=== PATIENT | male | born 1970 | race Caucasian/White ===

== ENCOUNTER 2024-03-11 21:21 | Emergency (ER) | payer MEDICAID, SELFPAY ==
[2024-03-11 21:23] VITALS: BP 119/73; PULSE 78; RESP 16; TEMP 35.9; O2SAT 97; BMI 31.1
--- NOTE | 2024-03-11 21:45 | ED.RN ---
Patient admits to SI after being taken back to ED room, nursing staff aware.
--- NOTE | 2024-03-11 21:47 | EKG12_ITS ---
Test Reason : Blood Pressure : / mmHG Vent. Rate : 061 BPM Atrial Rate : 061 BPM P-R Int : 132 ms QRS Dur : 080 ms QT Int : 402 ms P-R-T Axes : 052 018 032 degrees QTc Int : 404 ms Normal sinus rhythm Normal ECG Confirmed by JUSTA ESPOSITO, ARCHANA ([id number]), loan expeditor SANTHOSH MONSON ([id number]) on 03/16/2024 7:27:21 AM Referred By: Confirmed By:AMOS MARR MD
--- NOTE | 2024-03-11 21:47 | CT_ITS ---
EXAM: CT ABDOMEN AND PELVIS WITH INTRAVENOUS CONTRAST CLINICAL INDICATION: abd pain diffuse TECHNIQUE: Helically acquired images were obtained of the abdomen and pelvis with intravenous contrast. This CT exam was performed using one or more of the following dose reduction techniques: automated exposure control, adjustment of the mA and/or kV according to patient size, and/or use of iterative reconstruction technique. CONTRAST: IV 100mL Isovue-370 COMPARISON: No relevant prior studies available. FINDINGS: LOWER THORAX: Unremarkable. Lung bases are clear. No cardiomegaly. No significant pericardial effusion. ABDOMEN: LIVER: Unremarkable. Homogeneous. No focal mass. GALLBLADDER AND BILE DUCTS: Unremarkable. No calcified gallstones. No gallbladder distention or wall edema. No intra- or extrahepatic biliary ductal dilation. PANCREAS: Unremarkable. No focal cystic or solid mass. SPLEEN: Unremarkable. Normal size without focal cystic or solid mass. ADRENALS: Unremarkable. No nodules. KIDNEYS AND URETERS: Unremarkable. Normal renal size and position. No hydronephrosis. STOMACH AND BOWEL: Unremarkable. No stomach or bowel distention. No focal inflammatory change. PELVIS: APPENDIX: No evidence of acute appendicitis. BLADDER: Unremarkable. REPRODUCTIVE: Unremarkable as visualized. No mass. ABDOMEN and PELVIS: INTRAPERITONEAL SPACE: Unremarkable. No ascites or other fluid collection. No free air. BONES/JOINTS: There is scoliotic deformity of the thoracolumbar spine. No suspicious lytic or blastic abnormality. SOFT TISSUES: Unremarkable. No discrete abdominal or pelvic wall hernia. VASCULATURE: Unremarkable. Abdominal aorta is non-dilated. LYMPH NODES: Unremarkable. No enlarged lymph nodes. CT/Abdomen/Pelvis W IV Cont ONLY IMPRESSION: No acute findings in the abdomen or pelvis. Electronically Signed: Elkin Caro MD at 23:30 EDT ,
--- NOTE | 2024-03-11 21:58 | EX.ED.DYSGE1 ---
HPI History of Present Illness Chief Complaint: Hyperglycemia Narrative Narrative: Patient is a 53-year-old male with a past medical history of diabetes, depression, anxiety, hypertension, hypercholesterolemia, who presents to the emergency department chief complaint of elevated blood glucose. Patient states that he noted for the past several days his glucose has been elevated on his glucometer prompting him to come here for the evaluation management. He states that has been since taking 1000 mg of his metformin and notes that he supposed be taking 2000 mg daily. He states that he was recently admitted to a psychiatric facility for suicidal ideations and was recently discharged. He states that tonight he had suicidal ideations and plan on hanging himself as his 18-year-old son's anniversary of his is coming up tomorrow. He states that he has been having some diarrhea and mild abdominal pain but denies any other infectious etiologies. [facility] Medical History Tonsillectomy planned Depression Anxiety Hypertension Hypercholesteremia Diabetes Home Medications ?Medication ?Instructions ?Recorded ?Last Taken ?Type amlodipine 5 mg tablet 5 mg PO DAILY 03/11/24 Unknown History atorvastatin 40 mg tablet 40 mg PO QHS 03/11/24 Unknown History cetirizine 10 mg tablet (24Hour 10 mg PO DAILY 03/11/24 Unknown History Allergy) duloxetine 40 mg capsule,delayed 40 mg PO DAILY 03/11/24 Unknown History release sprinkle lisinopril 40 mg tablet 40 mg PO DAILY 03/11/24 Unknown History metformin 1,000 mg tablet 1,000 mg PO BID 03/11/24 Unknown History olanzapine 10 mg tablet 10 mg PO QHS 03/11/24 Unknown History omeprazole 40 mg capsule,delayed 40 mg PO DAILY 03/11/24 Unknown History release Allergy/AdvReac Type Severity Reaction Status Date / Time No Known Allergies Allergy Verified 03/11/24 21:22 Surgical History History of ankle surgery H/O hand surgery Hx of umbilical hernia repair Hx of plastic surgery Social History Smoking Status: Current every day smoker tobacco type: cigarettes ROS ROS ED ROS Narrative Constitutional: Denies any headaches, fevers, chills, lightness, dizziness Cardiovascular: Denies chest pain or palpitations Respiratory: Denies coughing wheezing shortness of breath Abdomen: There is still some abdominal discomfort, nausea diarrhea as noted above denies vomiting : Denies any urinary symptoms Neurological: Denies numbness, weakness, tingling Musculoskeletal: Denies back pain Skin: Denies rashes or lesions Psychiatric: Complaint suicidal ideation as noted above EXAM Physical Exam Narrative Exam Narrative: General: Patient was lying in bed rest comfortably did not appear in acute distress Head: Atraumatic, normocephalic Eyes: PERRL bilaterally, EOMI bilateral, no conjunctival injection noted Neck: Soft and supple, trachea midline Cardiovascular: Regular rate and rhythm no murmurs gallops rubs noted Respiratory: Clear to auscultation bilaterally Abdomen: Soft, nondistended, diffuse tenderness to palpation no rebound or guarding on exam Extremities: +5/5 strength noted in the bilateral lower extremities, no pedal edema neuroexam Neurological: Patient follow commands and he was at [facility] year is 2023 Skin: Warm dry, intact Const Vital Signs: 03/11/24 21:23 03/11/24 21:34 Temperature 96.7 F L Temperature Source Temporal Pulse Rate 78 Respiratory Rate 16 Respiratory Effort Normal Non-Labored Respiratory Pattern Normal Blood Pressure 119/73 Blood Pressure Mean 88 Pulse Ox 97 Oxygen Delivery Method Room Air MDM MDM MDM Narrative Medical decision making narrative: Patient is a 53-year-old male who presented to the emerged part with chief complaint of elevated blood sugars at home as well as suicidal ideation. Patient blood work performed on the differential diagnosis includes but not limited to DKA, HHS, hyperglycemia, pancreatitis, cholecystitis. Once workup is obtained and reviewed he will be reevaluated. Patient be given IV fluids for hydration. After his evaluation medically he will require crisis evaluation for his suicidal ideations. Patient's case will be signed out to oncoming provider to make ultimate disposition details see their note for the details. Discharge Plan Triage Chief Complaint: Hyperglycemia ED Provider: Wilmar Lorenzo Dx/Rx/DC Orders Prescriptions: No Action amlodipine 5 mg tablet 5 mg PO DAILY lisinopril 40 mg tablet 40 mg PO DAILY omeprazole 40 mg capsule,delayed release(DR/EC) 40 mg PO DAILY atorvastatin 40 mg tablet 40 mg PO QHS metformin 1,000 mg tablet 1,000 mg PO BID duloxetine 40 mg capsule, delayed rel sprinkle 40 mg PO DAILY olanzapine 10 mg tablet 10 mg PO QHS cetirizine [24Hour Allergy] 10 mg tablet 10 mg PO DAILY Print Language: Bulgarian
[2024-03-11] MEDS: 0.9% Normal Saline (1000mL) 1,000 ML 999 ML IV (22:08)
[2024-03-11 22:11] LABS: Blood Gas Specimen Type VEN; O2 Delivery Device Room Air; SITE Not entered; VBG BASE EXCESS 3 mmol/L (-1.0-3.5); VBG Bicarbonate 27 mmol/L (22-26); VBG PO2 41 mmHg (25-40); VBG SO2 78 % (50-70); VBG TCO2 29 mmol/L (23-33); VBG pH 7.43 (7.32-7.42)
[2024-03-11 22:12] LABS: Bacteria 0 SEEN /hpf (None Seen); Mucous, Urine 0 SEEN /hpf (<or=2+); Red Blood Cells-Urine 0 SEEN /hpf (0-5); White Blood Cells 0 SEEN /hpf (0-5)
[2024-03-11 22:26] LABS: Color, Urine Yellow (Yellow); Glucose, Dipstick Normal (Normal); Ketone-Dipstick Negative (Negative); Leukocyte Esterase-Dipstick Negative /ul (Negative); Nitrite-Dipstick Negative (Negative); Occult Blood-Urine 25 /ul (Negative); Protein-Dipstick Negative (Negative); Specific Gravity, Urine 1.015 (1.002-1.030); Urine Bilirubin Dipstick Negative (Negative); Urine Clarity Clear (Clear); Urine Urobilinogen 1 mg/dl (Normal)
[2024-03-11 22:39] LABS: AST(SGOT) 24 U/L (15-37); Alanine Aminotransfer ALT/SGPT 32 U/L (16-61); Albumin, Serum 3.6 g/dL (3.2-5.0); Alkaline Phosphatase 57 U/L (45-117); Anion Gap 4 (5-15); BUN 15 mg/dL (7-18); BUN/Creat Ratio 16.3 RATIO (10-20); Calcium,Total 9.3 mg/dL (8.5-10.1); Chloride 109 mmol/L (98-107); Creatinine, Serum 0.92 mg/dL (0.70-1.30); EST Glomerular Filtration Rate 91 mL/min (>60); Est Glom Filt Rate - Afr Amer 110 mL/min (>60); Estimated Creatinine Clearance 107.98 ml/min; Globulin 3.5 g/dL (2.2-4.2); Glucose 135 mg/dL (74-106); Lipase 57 U/L (13-75); Potassium 3.9 mmol/L (3.5-5.1); Protein, Total 7.1 g/dL (6.4-8.2); Sodium Level 141 mmol/L (136-145)
[2024-03-11 23:03] LABS: Squamous Epithelial Cells - UA 5-10 SEEN /hpf (0-5)
[2024-03-11 23:13] LABS: Absolute Lymphocyte Count 3.12 X10^3/uL (0.83-4.51); Absolute Neutrophil Count 4.2 X10^3/uL (2.0-7.7); Basophil# 0.07 X10^3/uL; Basophil% 0.9 % (0-1); Eosinophil# 0.19 X10^3/uL; Eosinophils% 2.3 % (0-5); Hematocrit 36.7 % (40-54); Hemoglobin 11.9 g/dL (13.0-16.5); Lymphocyte # 3.12 X10^3/ul (0.83-4.51); Lymphocyte % 38.6 % (19-41); Mean Corp Hgb Conc 32.4 g/dL (32-36); Mean Corpuscular Hgb 28.7 pg (27.0-32.0); Mean Corpuscular Volume 88.6 fL (80-94); Mean Platelet Vol. 11.8 fl (6.2-12.0); Monocyte% 6.2 % (0-10); NRBC Flagged by Analyzer 0 % (0-5); Neutrophil # 4.19 X10^3/uL (2.7-7.7); Neutrophil % 51.8 % (47-70); Platelet Count 168 K/mm3 (150-450); RBC Distribution Width CV 13.8 % (11.6-14.6); Red Blood Count 4.14 M/mm3 (4.6-6.2); White Blood Count 8.1 K/mm3 (4.4-11.0)
[2024-03-12 00:01] VITALS: BP 102/59; PULSE 64; RESP 16; O2SAT 95
--- NOTE | 2024-03-12 00:37 | NURSING ---
CALLED CRISIS AND FAXED CHART AT [id number]
[2024-03-12 02:01] VITALS: BP 112/63; PULSE 61; RESP 18; TEMP 36.7; O2SAT 93
== END 2024-03-12 02:15 | disposition home or self-care (01) ==
PROVIDERS: Emergency Provider Emergency Medicine; Visit Provider Emergency Medicine
DX: E11.65 Type 2 diabetes mellitus with hyperglycemia (principal); I10 Essential (primary) hypertension; E78.00 Pure hypercholesterolemia, unspecified; R45.851 Suicidal ideations; Z79.84 Long term (current) use of oral hypoglycemic drugs; F17.210 Nicotine dependence, cigarettes, uncomplicated; F41.9 Anxiety disorder, unspecified; F32.A Depression, unspecified; Z79.899 Other long term (current) drug therapy
CPT/HCPCS: 74177; 80053; 81001; 82803; 83690; 85025; 87631; 93005; 96360; 99283; J7030; Q9967; A4216